=== PATIENT | male | born 1935 | race Caucasian/White ===

== ENCOUNTER 2018-01-12 13:50 | Inpatient (IN) | payer MEDICARE ==
--- NOTE | 2018-01-12 14:13 | ED Physician Chart ---
ED Chief Complaint/HPI - Patient Information Date Seen:: 01/12/18 Time Seen:: 14:00 Chief Complaint:: Depression History of Present Illness:: onset x 3 days of depressed behavior; no report of trauma, SIs, H/As, S/T, neck pain, C/P, SOB, Abd. Pain, bleeding, A/N/V/D/C, fever, chills, or urinary s/s Allergies:: Allergies Allergy/AdvReac Type Severity Reaction Status Date / Time Penicillins [PCN] Allergy Verified 01/12/18 13:55 Vitals:: Vital Signs - 8 hr 01/12/18 14:00 Temp 99.1 F HR 87 RR 16 BP 109/88 O2 Sat % 95 Historian:: Patient, EMS Review:: Nurse's Note Reviewed, Old Chart Reviewed, EMS run form Reviewed ED Review of Systems - Review of Systems General/Constitutional: No fever, No chills, No weight loss, No weakness, No diaphoresis, No edema, No loss of appetite Skin: No skin lesions, No rash, No bruising Head: No headache, No light-headedness Eyes: No loss of vision, No pain, No diplopia ENT: No earache, No nasal drainage, No sore throat, No tinnitus Neck: No neck pain, No swelling, No thyromegaly, No stiffness, No mass noted Cardio Vascular: No chest pain, No palpitations, No PND, No orthopnea, No edema Pulmonary: No SOB, No cough, No sputum, No wheezing GI: No nausea, No vomiting, No diarrhea, No pain, No melena, No hematochezia, No constipation, No hematemesis G/U: No dysuria, No frequency, No hematuria, No nacturia Musculoskeletal: No bone or joint pain, No back pain, No muscle pain Endocrine: No polyuria, No polydipsia Psychiatric: Prior psych history, Depression, Anxiety, No suicidal ideation, No homicidal ideation, No auditory hallucination, No visual hallucination Hematopoietic: No bruising, No lymphadenopathy Allergic/Immuno: No urticaria, No angioedema Neurological: No syncope, No focal symptoms, No weakness, No paresthesia, No headache, No seizure, No dizziness, Confusion, No vertigo ED Past Medical History - Past Medical History Obtainable: Yes Past Medical History: HTN, DM, Dyslipidemia, Arthritis, Dementia Family History: HTN Social History: Non Smoker, No Alcohol, No Drug Use, , Care Facility Surgical History: None Psychiatricy History: Depression, Dementia Medication: Reviewed ED Physical Exam - Physical Examination General/Constitutional: Awake, Well-developed, well-nourished, Alert, No distress, GCS 15, Non-toxic appearing, Ambulatory Head: Atraumatic Eyes: Lids, conjuctiva normal, PERRL, EOMI Skin: Nl inspection, No rash, No skin lesions, No ecchymosis, Well hydrated, No lymphadenopathy ENMT: External ears, nose nl, TM canals nl, Nasal exam nl, Lips, teeth, gums nl , Oropharynx nl, Tonsils nl Neck: Nontender, Full ROM w/o pain, No JVD, No nuchal rigidity, No bruit, No mass, No stridor Respiratory: Nl effort/Exclusion, Clear to Auscultation, No Wheeze/Rhonchi/Rales Cardio Vascular: RRR, No murmur, gallop, rubs, NL S1 S2, Carotid/Femoral/Distal pulses equal bilaterally GI: No tenderness/rebounding/guarding, No organomegaly, No hernia, Normal BS's, Nondistended, No mass/bruits, No McBurney tenderness Other GI comments:: no pulsatile masses : No CVA tenderness Extremities: No tenderness or effusion, Full ROM, normal strength in all extremities, No edema, Normal digits & nails Neuro/Psych: Alert/oriented, DTR's symmetric, Normal sensory exam, Normal motor strength, Judgement/insight normal, Mood normal, Normal gait, No focal deficits Other Neuro/Psych comments:: + Psychomotor Retardation; no SIs; Mood/Affect: Stable Misc: Normal back, No paraspinal tenderness ED Labs/Radiology/EKG Results - Lab Results Comments:: unremarkable - EKG Interpretations EKG Time:: 14:11 Rate & Rhythm: 80; NSR Comments:: non-specific st-t changes ED Septic Shock - . Is Septic Shock (SBP<90, OR Lactate>4 mmol\L) present?: No - <6hrs of presentation: Vital Signs: Vital Signs - 8 hr 01/12/18 14:00 Temp 99.1 F HR 87 RR 16 BP 109/88 O2 Sat % 95 ED Reassessment (Disposition) - Reassessment Reassessment Condition:: Improved - Diagnosis Diagnosis:: Dx: Depression; Medical Clearance - Aftercare/Follow up Instructions Aftercare/Follow-Up Instructions:: Counseled pt regarding lab results/diagnosis & need follow up, Counseled pt & family regarding lab results/diagnosis & need follow up - Patient Disposition Discharge/Transfer:: Acute Care w/in this hosp Admitted to:: [facility] Condition at Disposition:: Stable, Improved
[2018-01-12 14:45] LABS: ACETAMINOPHEN < 10.0 ug/mL (10.0-30.0); ALB/GLOB RATIO 1.4 (1.0-1.8); ALBUMIN 3.9 gm/dL (4.2-5.5); ALKALINE PHOSPHATASE 54 U/L (34-104); ANION GAP 11.3 (7.0-16.0); BILIRUBIN,TOTAL 0.4 mg/dL (0.3-1.0); BUN - UREA NITROGEN 28 mg/dL (7-25); CARBON DIOXIDE 23.1 mEq/L (21.0-31.0); CHLORIDE 107 mEq/L (98-107); CHOLESTEROL 150 mg/dL (<200); CREATININE - SERUM 1.2 mg/dL (0.7-1.3); GLUCOSE 117 mg/dL (70-105); HDL -HIGH DENSITY LIPOPROTEIN 40 mg/dL (23-92); POTASSIUM SERUM 4.4 mEq/L (3.5-5.1); SGOT 19 U/L (13-39); SGPT/ALT 12 U/L (7-52); SODIUM SERUM 137 mEq/L (136-145); TOTAL PROTEIN,SERUM 6.6 gm/dL (6.0-8.3); TRIGLYCERIDES 161 mg/dL (<150)
[2018-01-12 15:47] LABS: % BASOPHILS 0.7 % (0.0-2.0); % EOSINOPHILS 3.2 % (0.0-5.0); % LYMPHOCYTES 29.5 % (20.0-50.0); % MONOCYTES 10.5 % (2.0-10.0); % NEUTROPHILS 56.1 % (40.0-80.0); EOSINOPHILE ABSOLUTE 0.2 Th/cmm (0.1-0.4); HEMATOCRIT 40.9 % (41.0-60); LYMPHOCYTE ABSOLUTE 1.9 Th/cmm (1.5-3.0); MEAN CELL VOLUME 95.1 fl (80-99); MEAN CORPUSCULAR HEMOGLOBIN 32.5 pg (27.0-31.0); MEAN CORPUSCULAR HGB CONC 34.2 pg (28.0-36.0); MEAN PLATELET VOLUME 8.2 fl; MONOCYTE ABSOLUTE 0.7 Th/cmm (0.3-1.0); NEUTROPHILE ABSOLUTE 3.5 Th/cmm (1.8-8.0); PLATELET COUNT 288 Th/cmm (150-400); RED CELL DISTRIBUTION WIDTH 13.8 % (11.5-20.0); WHITE BLOOD COUNT 6.3 Th/cmm (4.8-10.8)
[2018-01-12 15:59] LABS: URINE MICROSCOPIC INDICATED? YES; URINE SOURCE CLEAN C
[2018-01-12 16:01] LABS: URINE BILIRUBIN NEGATIVE (NEGATIVE); URINE BLOOD NEGATIVE (NEGATIVE); URINE GLUCOSE (UA) NEGATIVE (NEGATIVE); URINE KETONE NEGATIVE (NEGATIVE); URINE LEUKOCYTE ESTERASE TRACE (NEGATIVE); URINE NITRATE NEGATIVE (NEGATIVE); URINE PH 5.5 (4.6 - 8.0); URINE PROTEIN NEGATIVE (NEGATIVE); URINE UROBILINOGEN 0.2 E.U./dL (0.2 - 1.0)
[2018-01-12 16:02] LABS: URINE CLARITY CLEAR (CLEAR); URINE COLOR YELLOW
[2018-01-12 16:05] LABS: URINE BACTERIA FEW /hpf (NONE SEEN); URINE EPITHELIAL CELLS FEW /lpf (FEW); URINE RBC 0-2 /hpf (0-5)
[2018-01-12 16:17] LABS: SALICYLATES (ASPIRIN) < 25.0 mg/L (30.0-100.0)
[2018-01-12 16:35] LABS: AMPHETAMINE URINE NEGATIVE (NEGATIVE); BARBITURATES URINE NEGATIVE (NEGATIVE); BENZODIAZEPINES QUAL URINE NEGATIVE (NEGATIVE); CANNABINOID THC NEGATIVE (NEGATIVE); COCAINE METABOLITE QUAL URINE NEGATIVE (NEGATIVE); METHADONE URINE NEGATIVE (NEGATIVE); METHAMPHETAMINES QUAL URINE NEGATIVE (NEGATIVE); OPIATES (MORPHINE) QUAL. URINE POSITIVE (NEGATIVE); PHENCYCLIDINE (PCP) URINE NEGATIVE (NEGATIVE); TRICYCLICS (TCA) QUAL. URINE NEGATIVE (NEGATIVE)
[2018-01-12 17:13] VITALS: BP 107/53
[2018-01-12 17:21] LABS: A1C % 6.4 % (4.0-6.0)
[2018-01-12] MEDS ORDERED: Magnesium Hydroxide (MOM) 30 mL UDC PO PRN (17:48)
[2018-01-12] MEDS ORDERED: Hydrocodone/APAP 5mg/325mg Tab PO PRN (17:48)
[2018-01-12] MEDS ORDERED: Maalox 30 mL Cup PO PRN (17:52)
[2018-01-12] MEDS: Atorvastatin Calcium 10 MG TAB PO SCH (20:49)
--- NOTE | 2018-01-12 22:53 | Psychosocial Evaluation ---
DATE OF SERVICE: 01/12/2018 IDENTIFYING DATA: The patient is an 82-year-old male, resident of [facility]. Information obtained by directly interviewing the patient as well as reviewing the admission papers and they are reliable. JUSTIFICATION OF HOSPITALIZATION: The patient is admitted here on a voluntary basis in view of his depression. CHIEF COMPLAINT: "I am not sure, I am getting kind of frustrated." HISTORY OF PRESENT ILLNESS: This is the first psychiatric hospitalization to [facility] for this patient, who is reported to have been at [facility] for the past 2 years. The patient is reported to have been isolating, getting depressed, and feeling helpless and hence has been referred over here for stabilization. PAST PSYCHIATRIC HISTORY: The patient denies any prior psychiatric hospitalizations. MEDICAL HISTORY: Physical examination is requested to be done by Dr. Kelley. SUBSTANCE ABUSE HISTORY: None. PHYSICAL OR SEXUAL ABUSE HISTORY: None. LEGAL PROBLEMS: None at this time. 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 Everyone is . The patient is stating that maybe there is no other reasons why he has been feeling depressed. MENTAL STATUS EXAMINATION: The patient is an 82-year-old, looking his stated age, cooperative. Eye contact is fair. Mood is depressed. Affect is constricted. The patient is isolative and withdrawn. The patient is stating that he is feeling frustrated for being in a place and is not having any support system. The patient is not presenting with any psychotic symptoms. The patient is alert and awake. Short term memory, these are noted to be poor. Long-term memory seems to be fair. The patient, however, is noted to be motivated for treatment. DIAGNOSTIC IMPRESSION: AXIS I: Major depressive disorder, first episode and moderate. AXIS: None. AXIS III: As per Dr. Kelley. IMMEDIATE TREATMENT PLAN: The patient is going to be observed on the inpatient unit, provided with supportive psychotherapy. The patient is going to be closely monitored. Once stabilized, the patient is going to be discharged to [facility] to be followed up on an outpatient basis. JOB# [id number]
[2018-01-13] MEDS: Multivitamin Tab PO SCH (08:30)
[2018-01-13] MEDS: Escitalopram Oxalate 5 mg Tab PO SCH (09:00)
[2018-01-13] MEDS ORDERED: Non-Formulary Item 1 EA (Apixaban [Eliquis] 1 TAB) PO SCH (09:00)
[2018-01-13] MEDS: Atorvastatin Calcium 10 MG TAB PO SCH (20:45)
--- NOTE | 2018-01-13 22:02 | Progress Notes ---
DATE: 01/13/2018 SUBJECTIVE: Staff was spoken to. The patient is interviewed. Mood is noted to be depressed. Affect is constricted. The patient is isolative and withdrawn. Coping skills are noted to be poor at this time. No side effects to the medications are noted. The patient is stating that he was an active person until the hip surgery was done, from thereon he has been confined to the wheelchair. Coping skills are noted to be poor at this time. The patient has been feeling helpless and hopeless. ASSESSMENT: The patient is depressed. PLAN: To continue the patient with Lexapro and follow up. JOB# [id number]
[2018-01-14] MEDS: Multivitamin Tab PO SCH (09:06)
[2018-01-14] MEDS: Escitalopram Oxalate 5 mg Tab PO SCH (09:06)
[2018-01-14] MEDS: Atorvastatin Calcium 10 MG TAB PO SCH (21:19)
--- NOTE | 2018-01-14 21:33 | History and Physical ---
History of Present Illness - HPI Chief Complaint: Mental health disorder HPI: 82 yrs old male with underlying DVT BPH Alzhiemer's dementia psych disorder admitted for evaluation and treatment for underlying psych illness by DR Staley. Dr Staley requested medical evaluation for this patient. During my evaluation patient was awake alert He denied any physical complaints. Vital Signs: Last Vital Signs Temp 97.6 F 01/14/18 20:00 Pulse 70 01/14/18 20:00 Resp 19 01/14/18 20:00 BP 108/66 01/14/18 20:00 Pulse Ox 97 01/14/18 20:00 Past Medical History Cardiovascular: Report: Other (DVT BPH) Pulmonary: Denies: No Pertinent Hx, Asthma, Bronchitis, COPD, Pulmonary Embolus , Previously Intubated, Pneumonia, Other CLIENT SERVICE COORDINATOR: Report: Dementia. Denies: No Pertinent Hx, Carpal Tunnel Syndrome, CVA, Migraine, Peripheral neuropathy, Seizure, TIA, Vertigo, Other GI: Denies: No Pertinent Hx, Constipation, Diverticulosis, GERD, GI Bleed, Gastritis, Hemorrhoids, Inflam. bowel disease, Irritable bowel disease, Peptic Ulcer, Other Musculoskeletal: Denies: No Pertinent Hx, Low Back Pain, Bursitis, Osteoarthritis, Muscle Atrophy, Weakness, No Pain, Swelling, Stiffness, Other Renal/: Denies: No Pertinent Hx, Chronic Renal Insuff, Acute Renal Failure, Chronic Renal Failure, UTI, Benign Prostatic Enlarg, Prostate CA, Bladder CA, Urinary Incontinence, Hematuria, Other Endocrine: Denies: No Pertinent Hx, Diabetes, Hyperthyroidism, Hypothyroidism, Hyperparathyroidism, Osteopenia, Osteoporosis, Other Social History Smoke: No Alcohol: None Drugs: None Lives: Residential - Medications Home Medications: Home Medication Medication Instructions Recorded Type Apixaban [Eliquis] 1 tab PO BID 01/12/18 History Atorvastatin Calcium [Lipitor] 1 tab PO HS 01/12/18 History Docusate Sodium [Colace] 1 tab PO DAILY 01/12/18 History Gabapentin [Neurontin*] 1 tab PO BID 01/12/18 History Hydrocodone/Acetaminophen [Ronan 1 tab PO BID PRN 01/12/18 History 325 mg-5 mg*] Hydrocodone/Acetaminophen [Ronan 1 tab PO DAILY 01/12/18 History 325 mg-5 mg*] Insulin Human Regular [NovoLIN R*] 0 unit SUBQ MWF 01/12/18 History Magnesium Hydroxide [Milk of 30 ml PO DAILY PRN 01/12/18 History Magnesia] Memantine [Namenda] 1 tab PO DAILY 01/12/18 History Multivitamin-Min/Iron/FA/Vit K 1 tab PO DAILY 01/12/18 History [Multi-Day Plus Minerals Tablet] Tamsulosin [Flomax] 1 tab PO DAILY 01/12/18 History Vit D2 50,000 unit PO QWED 01/12/18 History metFORMIN [Glucophage] 1 tab PO BIDWM 01/12/18 History - Allergies Allergies/Adverse Reactions: Allergies Allergy/AdvReac Type Severity Reaction Status Date / Time Penicillins [PCN] Allergy Verified 01/12/18 13:55 Review of Systems - Review of Systems Constitutional: Report: No Significant Eyes: Report: No Significant ENT: Report: No Significant Respiratory: Report: No Significant Cardiovascular: Report: No Significant Gastrointestinal: Report: No Significant Genitourinary: Report: No Significant Musculoskeletal: Report: No Significant Skin: Report: No Significant Neurological: Report: No Significant Physical Exam - Physical Exam HEENT: Report: Ears Nose Throat within normal limits Neck: Report: Within normal limits Cardiovascular Systems: Report: Regular, Rate and Rhythm Respiratory: Report: Clear to Auscultation of lung bain Abdomen: Report: Non-tender to palpation Extremities: Report: Non-tender to palpation., No pedal edema was noted on inspection - Lab Results All Lab Results last 24 hours: Microbiology 01/12/18 15:31 - Final Nares NO MRSA ISOLATED - Assessment Assessment: Chronic DVT BPH HYPERLIPIDEMIA ALZHIMERS DEMENTIA MENTAL HEALTH DISORDER - Plan Plan: Continue ELIQUIS Continue STATIN Continue FLOMAX Psych managment per Psychiatrist Patient is medically stable
--- NOTE | 2018-01-15 02:49 | Progress Notes ---
DATE: 01/14/2018 PSYCHIATRIC PROGRESS NOTE SUBJECTIVE: Staff was spoken to. The patient is interviewed. Mood is noted to be irritable. Affect is constricted. Coping skills at this time are noted to be still poor. The patient is feeling lonely. The patient is stating that since he had hip replacement, his whole life has changed. The patient's coping skills at this time are noted to be very poor. No side effects to the medications are noted. ASSESSMENT: The patient is still depressed. PLAN: To continue the patient with antidepressant medications and follow the patient with supportive therapy. The patient is not ready to be discharged to a lower level of care yet. The patient is currently on escitalopram 5 mg and we will be gradually increasing the dose on the medications. JOB# [id number]
--- NOTE | 2018-01-15 04:51 | Consultation ---
DATE OF CONSULTATION: 01/14/2018 REFERRING PHYSICIAN: Enedelia Staley MD. TYPE OF CONSULTATION: Psychology. HISTORY OF PRESENT ILLNESS: The patient is an 82-year-old male. The patient is a resident of [facility]. The following is by record review and by patient's self report. The patient is being admitted due to increasing depression. Upon interview, the patient presents as confused and does not understand why he is being hospitalized. The patient believes that he is here because of pain in his legs. The staff at the patient's facility report that he has been isolating and has verbalized feelings of helplessness and hopelessness. The patient was transferred here for stabilization. Currently, the patient denies any suicidal ideation, plan or intention. PAST MEDICAL HISTORY: Please see history and physical by Dr. Kelley. PAST PSYCHIATRIC HISTORY: Information is unavailable at the time of this clinical interview. There is no history of any prior psychiatric hospitalizations. SUBSTANCE ABUSE HISTORY: The patient denies any history. PSYCHOSOCIAL HISTORY: The patient did not answer questions about occupational or educational history. The patient states that he is episcopalian, but not specific as to denomination. The patient denied any history of physical or sexual abuse. The patient denies any current legal problems. The patient wishes to return to his prison facility. The patient states that the staff told him he would be in the hospital for 2-3 days for evaluation and treatment and then return to his placement. The patient apparently has no family or any support system. The patient stated all his relatives are . MENTAL STATUS EXAMINATION: The patient appears to be his stated age. The patient's attitude is cooperative. Eye contact is fair. Speech is spontaneous. Mood is dysphoric. Affect is mood congruent and reactive. Thought process shows to be somewhat confused; however, the patient is responding to the clinical questions relevantly and coherently. The patient's behavior has been isolative and withdrawn on the unit. According to staff, the patient denies any suicidal ideation, plan or intention. The patient admits helplessness and/or feelings of hopelessness. The patient denies any delusions. Concentration is fair to poor. Impulse control is intact. The patient was able to repeat 3 items given to him the first time; however, the patient was unable to recall any of the 3 items after several minutes. The patient was able to recall 1 item with one hint. Short term memory seems to be impaired. Long-term memory is fair. The patient's sensorium is alert and oriented to self and place. The patient did not participate in the interpretation of proverbs. Insight is fair to poor. Judgment is compromised. DIAGNOSTIC IMPRESSION: AXIS I: Major depressive disorder, single and first episode, moderate. AXIS II: Deferred. AXIS III: Per Dr. Kelley. TREATMENT PLAN: The patient has been seen by Dr. Staley for psychiatric evaluation and for the management of the patient's psychotropic medications. We will provide supportive psychotherapy to include coping strategies for phase of life issues. We will provide reflective listening and insight oriented therapeutic interventions to reduce the patient's depression. The patient is somewhat confused; therefore, we will continue to provide reality orientation and reality integration. We will continue to provide supportive therapy throughout the patient's hospital stay. We will encourage him to utilize the staff and other residents at his placement as his support system. It is anticipated the patient will return to his prison facility in approximately 3-5 days. 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 Thank you, Dr. Staley, for this consult and the opportunity to participate with you in this patient's care. JOB# [id number] [place]
[2018-01-15] MEDS: Multivitamin Tab PO SCH (08:17)
[2018-01-15] MEDS: Escitalopram Oxalate 5 mg Tab PO SCH (08:17)
[2018-01-15] MEDS: Atorvastatin Calcium 10 MG TAB PO SCH (21:14)
--- NOTE | 2018-01-16 02:08 | Progress Notes ---
DATE: 01/15/2018 SUBJECTIVE: Staff was spoken to. The patient is interviewed. Mood is noted to be irritable. Affect is constricted. Insight and judgment at this time are noted to be still impaired. The patient is isolated and withdrawn. Coping skills are noted to be poor. No side effects to the medications are noted. ASSESSMENT: The patient is still depressed. PLAN: To continue the patient with Lexapro and follow the patient. JOB# [id number]
[2018-01-16] MEDS: Multivitamin Tab PO SCH (09:58)
[2018-01-16] MEDS: Escitalopram Oxalate 5 mg Tab PO SCH (09:58)
--- NOTE | 2018-01-16 13:44 | Progress Notes ---
DATE: 01/16/2018 PSYCHIATRIC PROGRESS NOTE SUBJECTIVE: Staff was spoken to. The patient is interviewed. Mood is noted to be depressed. Affect is constricted. The patient is isolative and withdrawn. Coping skills are noted to be very poor. No side effects to the medications are noted. The patient has been on Lexapro and has been able to tolerate the medications. ASSESSMENT: The patient is still depressed. PLAN: To continue the patient with the supportive therapy. I encouraged the patient to verbalize the concerns rather than to act out. JOB# [id number]
[2018-01-16] MEDS: Atorvastatin Calcium 10 MG TAB PO SCH (20:32)
[2018-01-17] MEDS: Escitalopram Oxalate 5 mg Tab PO SCH (09:06)
[2018-01-17] MEDS: Multivitamin Tab PO SCH (09:07)
--- NOTE | 2018-01-17 18:02 | Progress Notes ---
DATE: 01/17/2018 SUBJECTIVE: Staff was spoken to. The patient is interviewed. Mood is noted to be less irritable. Affect is appropriate. The patient has been isolative and withdrawn. The patient is stating that the depression has been becoming a major issue for him after the surgery of his hip and then he states that he is trying to cope with it. ASSESSMENT: The patient is still depressed. PLAN: To continue the patient with the supportive therapy. I encouraged the patient to verbalize the concerns rather than to act out. JOB# [id number]
[2018-01-17] MEDS: Atorvastatin Calcium 10 MG TAB PO SCH (21:01)
[2018-01-18] MEDS: Escitalopram Oxalate 5 mg Tab PO SCH (08:52)
[2018-01-18] MEDS: Multivitamin Tab PO SCH (08:52)
--- NOTE | 2018-01-18 20:42 | Progress Notes ---
DATE: 01/18/2018 SUBJECTIVE: Staff was spoken to. The patient is interviewed. Mood is noted to be irritable today. Insight and judgment are noted to be still improving. Impulse control seems to be poor. Coping skills are also noted to be very poor. The patient has been having difficult time to cope with the stress. No side effects to the medications are noted. The patient has been having difficult time to cope with the stress. Today, the patient is stating that he has been participating in the groups and has been trying to get some insight into his problems. ASSESSMENT: The patient is still depressed. PLAN: To continue the patient with the supportive therapy. I encouraged the patient to verbalize the concerns rather than to act out. [facility]# [id number]
--- NOTE | 2018-01-18 20:56 | General Progress Note ---
Subjective - Review of Systems Service Date: 01/18/18 Subjective: Patient seen and examined feels fine denied any complaints Objective - Results Result Diagrams: 01/12/18 14:17 01/12/18 14:17 Recent Labs: Laboratory Last Values WBC 6.3 Th/cmm (4.8-10.8) 01/12/18 14:17 RBC 4.30 Mil/cmm (3.80-5.80) 01/12/18 14:17 Hgb 14.0 gm/dL (12-16) 01/12/18 14:17 Hct 40.9 % (41.0-60) L 01/12/18 14:17 MCV 95.1 fl (80-99) 01/12/18 14:17 MCH 32.5 pg (27.0-31.0) H 01/12/18 14:17 MCHC Differential 34.2 pg (28.0-36.0) 01/12/18 14:17 RDW 13.8 % (11.5-20.0) 01/12/18 14:17 Plt Count 288 Th/cmm (150-400) 01/12/18 14:17 MPV 8.2 fl 01/12/18 14:17 Neutrophils % 56.1 % (40.0-80.0) 01/12/18 14:17 Lymphocytes % 29.5 % (20.0-50.0) 01/12/18 14:17 Monocytes % 10.5 % (2.0-10.0) H 01/12/18 14:17 Eosinophils % 3.2 % (0.0-5.0) 01/12/18 14:17 Basophils % 0.7 % (0.0-2.0) 01/12/18 14:17 Sodium 137 mEq/L (136-145) 01/12/18 14:17 Potassium 4.4 mEq/L (3.5-5.1) 01/12/18 14:17 Chloride 107 mEq/L (98-107) 01/12/18 14:17 Carbon Dioxide 23.1 mEq/L (21.0-31.0) 01/12/18 14:17 Anion Gap 11.3 (7.0-16.0) 01/12/18 14:17 BUN 28 mg/dL (7-25) H 01/12/18 14:17 Creatinine 1.2 mg/dL (0.7-1.3) 01/12/18 14:17 Est GFR ( Amer) TNP 01/12/18 14:17 Est GFR (Non-Af Amer) TNP 01/12/18 14:17 BUN/Creatinine Ratio 23.3 01/12/18 14:17 Glucose 117 mg/dL (70-105) H 01/12/18 14:17 POC Glucose 94 MG/DL (70 - 105) 01/16/18 17:17 Hemoglobin A1c % 6.4 % (4.0-6.0) H 01/12/18 14:17 Calcium 9.0 mg/dL (8.6-10.3) 01/12/18 14:17 Total Bilirubin 0.4 mg/dL (0.3-1.0) 01/12/18 14:17 AST 19 U/L (13-39) 01/12/18 14:17 ALT 12 U/L (7-52) 01/12/18 14:17 Alkaline Phosphatase 54 U/L (34-104) 01/12/18 14:17 Troponin I < 0.01 ng/mL (0.01-0.05) L 01/12/18 14:15 Total Protein 6.6 gm/dL (6.0-8.3) 01/12/18 14:17 Albumin 3.9 gm/dL (4.2-5.5) L 01/12/18 14:17 Globulin 2.7 gm/dL 01/12/18 14:17 Albumin/Globulin Ratio 1.4 (1.0-1.8) 01/12/18 14:17 Triglycerides 161 mg/dL (<150) H 01/12/18 14:17 Cholesterol 150 mg/dL (<200) 01/12/18 14:17 LDL Cholesterol Direct 90 mg/dL (75-193) 01/12/18 14:17 HDL Cholesterol 40 mg/dL (23-92) 01/12/18 14:17 TSH 2.53 uIU/ml (0.34-5.60) 01/12/18 14:17 Urine Source CLEAN C 01/12/18 15:25 Urine Color YELLOW 01/12/18 15:25 Urine Clarity CLEAR (CLEAR) 01/12/18 15:25 Urine pH 5.5 (4.6 - 8.0) 01/12/18 15:25 Ur Specific Varney >= 1.030 (1.005-1.030) 01/12/18 15:25 Urine Protein NEGATIVE mg/dL (NEGATIVE) 01/12/18 15:25 Urine Glucose (UA) NEGATIVE mg/dL (NEGATIVE) 01/12/18 15:25 Urine Ketones NEGATIVE mg/dL (NEGATIVE) 01/12/18 15:25 Urine Blood NEGATIVE (NEGATIVE) 01/12/18 15:25 Urine Nitrate NEGATIVE (NEGATIVE) 01/12/18 15:25 Urine Bilirubin NEGATIVE (NEGATIVE) 01/12/18 15:25 Urine Urobilinogen 0.2 E.U./dL (0.2 - 1.0) 01/12/18 15:25 Ur Leukocyte Esterase TRACE (NEGATIVE) H 01/12/18 15:25 Urine RBC 0-2 /hpf (0-5) H 01/12/18 15:25 Urine WBC 2-5 /hpf (0-5) 01/12/18 15:25 Ur Epithelial Cells FEW /lpf (FEW) 01/12/18 15:25 Urine Bacteria FEW /hpf (NONE SEEN) 01/12/18 15:25 Urine Mucus FEW /lpf (FEW) 01/12/18 15:25 Salicylates < 25.0 mg/L (30.0-100.0) L 01/12/18 14:17 Urine Opiates Screen POSITIVE (NEGATIVE) H 01/12/18 15:25 Urine Methadone Screen NEGATIVE (NEGATIVE) 01/12/18 15:25 Acetaminophen < 10.0 ug/mL (10.0-30.0) L 01/12/18 14:17 Ur Barbiturates Screen NEGATIVE (NEGATIVE) 01/12/18 15:25 Ur Tricyclics Screen NEGATIVE (NEGATIVE) 01/12/18 15:25 Ur Phencyclidine Scrn NEGATIVE (NEGATIVE) 01/12/18 15:25 Amphetamines Screen NEGATIVE (NEGATIVE) 01/12/18 15:25 U Methamphetamines Scrn NEGATIVE (NEGATIVE) 01/12/18 15:25 U Benzodiazepines Scrn NEGATIVE (NEGATIVE) 01/12/18 15:25 U Cocaine Metab Screen NEGATIVE (NEGATIVE) 01/12/18 15:25 U Cannabinoids Screen NEGATIVE (NEGATIVE) 01/12/18 15:25 Ethyl Alcohol < 10 mg/dL (0-10) 01/12/18 14:17 RPR NONREACTIVE (NONREACTIVE) 01/12/18 14:17 - Physical Exam Vitals and I&O: Vital Signs Temp 96.3 F 01/18/18 20:30 Pulse 89 01/18/18 20:30 Resp 20 01/18/18 20:30 BP 133/78 01/18/18 20:30 Pulse Ox 94 01/18/18 20:30 Intake & Output 01/18/18 01/18/18 01/19/18 06:59 18:59 06:59 Intake Total 300 240 Balance 300 240 Intake: Oral 300 240 Other: # Voids 2 1 # Bowel Movements 0 Stool Characteristics Soft Soft Soft Active Medications: Current Medications Acetaminophen (Tylenol) 650 mg PO Q4HR PRN PRN Reason: Mild Pain / Temp above 100 Stop: 03/13/18 17:51 Acetaminophen/Hydrocodone Bitart ([place] 5mg/325mg) 1 tab PO BID PRN PRN Reason: Pain (Severe) Stop: 03/13/18 17:47 Al Hydrox/Mg Hydrox/Simethicone (Maalox) 30 ml PO Q4H PRN PRN Reason: GI DISTRESS Stop: 03/13/18 17:51 Atorvastatin Calcium (Lipitor) 20 mg PO HS [facility] Stop: 03/13/18 20:59 Last Admin: 01/17/18 21:01 Dose: 20 mg Docusate Sodium (Colace) 100 mg PO DAILY [facility] Stop: 03/14/18 08:59 Last Admin: 01/18/18 08:51 Dose: 100 mg Escitalopram Oxalate (Lexapro) 5 mg PO DAILY [facility]; Protocol Stop: 03/14/18 08:59 Last Admin: 01/18/18 08:52 Dose: 5 mg Gabapentin (Neurontin) 100 mg PO BID [facility] Stop: 03/14/18 08:59 Last Admin: 01/18/18 17:29 Dose: 100 mg Lorazepam (Ativan) 0.5 mg PO Q4H PRN; Protocol PRN Reason: Agitation Stop: 03/13/18 17:56 Magnesium Hydroxide (Milk Of Magnesia) 30 ml PO DAILY PRN PRN Reason: Constipation Stop: 03/13/18 17:47 Memantine (Namenda) 10 mg PO DAILY [facility] Stop: 03/14/18 08:59 Last Admin: 01/18/18 08:52 Dose: 10 mg Metformin HCl (Glucophage) 500 mg PO BIDWM [facility] Stop: 03/14/18 07:59 Last Admin: 01/18/18 17:29 Dose: 500 mg Multivitamins/Vitamin C (Theragran) 1 tab PO DAILY ISMAEL Stop: 03/14/18 08:59 Last Admin: 01/18/18 08:52 Dose: 1 tab Rivaroxaban (Xarelto) 10 mg PO DAILY [facility] Stop: 03/14/18 11:29 Last Admin: 01/18/18 08:52 Dose: 10 mg Tamsulosin HCl (Flomax) 0.4 mg PO DAILY [facility] Stop: 03/14/18 08:59 Last Admin: 01/18/18 08:53 Dose: 0.4 mg Zolpidem Tartrate (Ambien) 5 mg PO HS PRN PRN Reason: Insomnia Stop: 03/13/18 17:51 Last Admin: 01/17/18 21:01 Dose: 5 mg Cardiovascular: Regular rate Lungs: Clear to auscultation Assessment/Plan - Assessment Assessment: DM II DVT BPH HYPERLIPIDEMIA ALZHIMERS DEMENTIA MENTAL HEALTH DISORDER - Plan Plan: Continue ELIQUIS Continue STATIN Continue FLOMAX Continue METFORMIN Psych managment per Psychiatrist Patient is medically stable Nutritional Asmnt/Malnutr-PDOC - Dietary Evaluation Malnutrition Findings (Please click <Entered> for more info): Nutritional Asmnt/Malnutrition Start: 01/15/18 14: 48 Text: Status: Complete Freq: Protocol: Document 01/15/18 14:48 LCHENG (Rec: 01/15/18 15:09 [email or web address]) Nutritional Asmnt/Malnutrition Patient General Information Nutritional Screening Moderate Risk Diagnosis psychosis Pertinent Medical Hx/Surgical Hx HTN, DM, dyslipidemia, arthritis, dementia, depression Subjective Information pt seen sitting in dining room , finished lunch. Pt stated food is good, no question about current meals. Per EMR, PO itnake 75-100%. Current Diet Order/ Nutrition Support CCHO-60gm Pertinent Medications theragran, glucophage, colace Pertinent Labs 6/5 BUN 28, Glucose 117, A1c 6 .4 Nutritional Hx/Data Height 1.73 m Height (Calculated Centimeters) 172.7 Current Weight (lbs) 82.1 kg Weight (Calculated Kilograms) 82.1 Weight (Calculated Grams) 84551.2 [place] Body Weight 154 Body Mass Index (BMI) 27.5 Weight Status Overweight GI Symptoms GI Symptoms None Last BM 6/6 Difficult in: None Skin Integrity/Comment: intact Estimated Nutritional Goals Calories/Kcals/Kg 25-30 Kcals Calculated 5576-4198 Protein g/k.8 monitor renal labs Protein Calculated 56 Fluid: ml 1750-2100ml 91ml/kcal) Nutritional Problem 1. Problem Problem altered nutrition related labs Etiology DM Signs/Symptoms: A1c 6.4, glucose 117 Malnutrition Alert Is there a minimum of two criteria No selected? Query Text:Check all the applicable criteria. A minimum of two criteria are recommended for diagnosis of either severe or non-severe malnutrition. Malnutrition Related to Morbid Obesity Malnutrition related to morbid obesity No Intervention/Recommendation Comments 1. Continue with [id number] diet as ordered. 2. Monitor PO intake, wt, labs and skin integrity 3. F/U as low risk in 7 days, 01/22 Expected Outcomes/Goals Expected Outcomes/Goals 1. PO intake to meet at least 75% of nutritional needs. 2. Wt stability, skin to remain intact, labs to approach WNL.
[2018-01-18] MEDS: Atorvastatin Calcium 10 MG TAB PO SCH (21:01)
[2018-01-19] MEDS: Escitalopram Oxalate 5 mg Tab PO SCH (08:42)
[2018-01-19] MEDS: Multivitamin Tab PO SCH (08:43)
[2018-01-19] MEDS: Atorvastatin Calcium 10 MG TAB PO SCH (20:45)
--- NOTE | 2018-01-20 00:01 | Progress Notes ---
DATE: 01/19/2018 PSYCHIATRIC PROGRESS NOTE SUBJECTIVE: Staff was spoken to. The patient is interviewed. Mood is noted to be depressed. Affect is constricted. The patient is isolative and withdrawn. Coping skills are noted to be still poor. Insight and judgment are noted to be limited. The patient has pain; however, has been able to participate in the groups. The patient is currently on the Lexapro and has been able to tolerate. ASSESSMENT: The patient is still depressed. PLAN: To continue the patient with the supportive therapy. I encouraged the patient to verbalize the concerns rather than to act out. JOB# [id number]
[2018-01-20] MEDS: Escitalopram Oxalate 5 mg Tab PO SCH (09:26)
[2018-01-20] MEDS: Multivitamin Tab PO SCH (09:27)
--- NOTE | 2018-01-20 14:38 | Progress Notes ---
DATE: 01/20/2018 PSYCHIATRIC PROGRESS NOTE SUBJECTIVE: Staff was spoken to. The patient is interviewed. Mood is noted to be irritable. Affect is constricted. The patient is stating that he has done nothing wrong, he was born and raised in [place] and he wants to go back. No side effects to the medications are noted. The patient has been able to tolerate the Lexapro. PLAN: To continue the patient with supportive therapy and followup. JOB# [id number]
[2018-01-20] MEDS: Atorvastatin Calcium 10 MG TAB PO SCH (20:44)
[2018-01-21] MEDS: Escitalopram Oxalate 5 mg Tab PO SCH (10:02)
[2018-01-21] MEDS: Multivitamin Tab PO SCH (10:02)
--- NOTE | 2018-01-22 00:15 | Progress Notes ---
DATE: 01/21/2018 SUBJECTIVE: Staff was spoken to. The patient is interviewed. Mood is noted to be anxious. Affect is appropriate. Not suicidal or homicidal. The patient has been able to participate in the groups and verbalize the concerns. The patient is not presenting with any threats to harm himself or others. ASSESSMENT: The patient is stabilizing. PLAN: To continue the patient with the supportive therapy. I encouraged the patient to verbalize the concerns. The patient is felt to be discharged back to the facility for further followup on outpatient basis. JOB# [id number]
== END 2018-01-21 15:00 | DRG 885 ==
LOC: ER 13:50 → GERO 15:45
PROVIDERS: ADMIT Psychiatry & Neurology Psychiatry; ATTEND Psychiatry & Neurology Psychiatry
DX: F32.1 Major depressive disorder, single episode, moderate (principal); F02.80 Dementia in other diseases classified elsewhere, unspecified severity, without behavioral disturbance, psychotic disturbance, mood disturbance, and anxiety; I10 Essential (primary) hypertension; E11.9 Type 2 diabetes mellitus without complications; E78.5 Hyperlipidemia, unspecified; M19.90 Unspecified osteoarthritis, unspecified site; N40.0 Benign prostatic hyperplasia without lower urinary tract symptoms; G30.9 Alzheimer's disease, unspecified; Z79.4 Long term (current) use of insulin; Z88.0 Allergy status to penicillin; Z82.49 Family history of ischemic heart disease and other diseases of the circulatory system
CPT/HCPCS: 36415-UA; 80053-TC; 80061-TC; 80307; 80320-TC; 80329-TC; 81001-TC; 82948-90; 83036-90; 84443-TC; 84484-TC; 85025-TC; 86592-TC; 90899; 93005; G0410; Z7610